=== PATIENT | female | born 1970 | race Caucasian/White ===

== ENCOUNTER 2018-08-15 15:55 | Emergency (ER) | payer OTHER ==
[~2018-08-15] VITALS: Ht 157.5 cm; Wt 56.2 kg
--- OUTSIDE RECORDS SUMMARY | 2018-08-15 15:57 | XMS REPORT | Clinical Summary ---
Author Author [facility] Address Unknown Phone Unavailable Care Team Providers Care Medical Superintendent Name Role Phone Taina Ball MD PCP Allergies Comments Active Allergy Reactions Severity Noted Date Pt states, "it makes my mind go crazy." "My throat closes up" Fentanyl Anaphylaxis, High 11/15/2015 Other (See Comments) RASH, ITCHING Iohexol Shortness Of High 04/16/2016 Breath Penicillins Hives High 11/15/2015 Sulfa (Sulfonamide Hives High 11/15/2015 Antibiotics) Medications End Date Status Medication Sig Dispensed Refills Start Date Active riFAXimin (XIFAXAN) 550 Take 550 mg 0 mg tablet by mouth 2 (two) times a day. Active MILK THISTLE ORAL Take 3 0 capsules by mouth nightly. Active LEXAPRO 10 mg tablet Take 20 mg by 0 mouth daily. 6 Active ondansetron ODT Take 8 mg by 0 (ZOFRAN-ODT) 8 MG mouth every 8 disintegrating tablet (eight) hours as needed for nausea or vomiting. Active XANAX 0.5 mg tablet Take 0.5 mg 0 by mouth daily as needed for anxiety. Active DROSPIR/ETH Take 1 tablet 0 ESTRA/LEVOMEFOL CA by mouth (SAFYRAL ORAL) daily. Active Lactobacillus acidophilus Take by mouth 0 10 billion cell capsule daily. 50 billion (5 tablets) Active pantoprazole (PROTONIX) Take 40 mg by 0 40 MG EC tablet mouth daily. Active spironolactone Take 50 mg by 0 (ALDACTONE) 50 MG tablet mouth 2 (two) times a day. Active lactulose 10 gram/15 mL Take 30 g by 0 (15 mL) solution mouth 2 (two) times a day. Active cholecalciferol, vitamin Take 50,000 0 D3, (VITAMIN D3) 5,000 Units by unit capsule mouth once a week. Active furosemide (LASIX) 20 mg Take 20 mg by 0 tablet mouth daily. Active atomoxetine (STRATTERA) Take 100 mg 0 100 MG capsule by mouth daily. Active buPROPion (WELLBUTRIN) Take 100 mg 0 100 MG tablet by mouth daily. Active QUEtiapine (SEROquel) 25 Take 25 mg by 0 MG tablet mouth nightly as needed. Active traZODone (DESYREL) 100 Take 200 mg 0 MG tablet by mouth nightly as needed for sleep. 09/14/2017 Discontinued zolpidem (AMBIEN) 5 MG Take 10 mg by 0 tablet mouth daily. 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 Mixed anxiety and depressive disorder 06/06/2018 Cirrhosis of liver with ascites 07/07/2017 Overview: Added automatically from request for surgery [id number] Fatty liver 04/10/2016 Cirrhosis of liver 04/10/2016 Hepatomegaly 04/10/2016 Epigastric pain 12/05/2015 Intractable vomiting with nausea 12/05/2015 Encounters Care Team Description Date Type Specialty Valentin Lopez MD Mild cognitive impairment (Primary Dx); Fatty liver; Hepatomegaly; Cirrhosis of liver with ascites, unspecified hepatic cirrhosis type (HCC); Myotonia congenita; Blood glucose abnormal; Anemia due to vitamin B12 deficiency, unspecified B12 deficiency type; Adult hypothyroidism 06/09/2018 Orders Only Neurology Valentin Lopez MD 06/09/2018 Orders Only Neurology Jailene English Mild cognitive impairment (Primary Dx); Cerebral atherosclerosis; Cirrhosis of liver with ascites, unspecified hepatic cirrhosis type (HCC) 06/07/2018 Orders Only Neurology Valentin Lopez MD Mild cognitive impairment (Primary Dx); Myotonia congenita; Mixed anxiety and depressive disorder 06/06/2018 Office Visit Neurology William Renee MD Hepatic cirrhosis, unspecified hepatic cirrhosis type, unspecified whether ascites present (HCC) 06/02/2018 Hospital Radiology Encounter William Renee MD 05/30/2018 Transcribe Access Orders William Renee MD Hepatic cirrhosis, unspecified hepatic cirrhosis type, unspecified whether ascites present (HCC) (Primary Dx) 05/27/2018 Transcribe Access Orders William Renee MD Nausea and vomiting, intractability of vomiting not specified, unspecified vomiting type 11/08/2017 Hospital Radiology Encounter William Renee MD Nausea and vomiting, intractability of vomiting not specified, unspecified vomiting type (Primary Dx) 10/21/2017 Transcribe Access Orders Dameon Ramirez MD 10/21/2017 Transcribe Access Orders Ben Rivas MD 09/14/2017 Anesthesia Gastroenterology Event William Renee MD EGD/biopsies 09/14/2017 Surgery Gastroenterology William Rneee MD Cirrhosis of liver with ascites, unspecified hepatic cirrhosis type (Primary Dx) 09/14/2017 Hospital Gastroenterology Encounter after 08/14/2017 Social History Date Tobacco Use Types Packs/Day Years Used Never Smoker Smokeless Tobacco: Never Used Alcohol Use Drinks/Week oz/Week Comments Defer Sex Assigned at Date Recorded Not on file Industry Job Start Date Occupation Not on file Not on file Not on file Travel End Travel History Travel Start No recent travel history available. Last Filed Vital Signs Time Taken Vital Sign Reading 06/06/2018 12:44 PM [facility] Blood Pressure 131/71 06/06/2018 12:44 PM [facility] Pulse 83 09/14/2017 1:30 PM CDT Temperature 36.4 C (97.5 F) 09/14/2017 3:00 PM CDT Respiratory Rate 19 09/14/2017 3:00 PM CDT Oxygen Saturation 98% - Inhaled Oxygen - Concentration 06/06/2018 12:44 PM [facility] Weight 66.7 kg (147 lb) 06/06/2018 12:44 PM [facility] Height 157.5 cm (5' 2") 06/06/2018 12:44 PM [facility] Body Mass Index 26.89 Plan of Treatment Care Team Description Date Type Specialty Svitlana Perez MD [address] [facility] [address] [place] [address] 08/18/2018 Office Visit Obstetrics and Gynecology Valentin Lopez MD [address] [facility] [address] [place] [address] Edna Medrano, PhD [address] [facility] [address] [place] [address] [phone] 08/22/2018 Office Visit Neuropsychology Valentin Lopez MD [address] [facility] [address] [place] [address] [phone] 08/22/2018 Appointment Radiology Valentin Lopez MD [address] [facility] [address] [place] [address] [phone] 08/30/2018 Office Visit Neurology Health Maintenance Due Date Last Done Comments CERVICAL CANCER SCREENING 02/26/1992 INFLUENZA VACCINE 12/08/2018 Procedures Comments Procedure Name Priority Date/Time Associated Diagnosis JENNIFER Routine 06/16/2018 MCI (mild cognitive 2:11 PM [facility] impairment) with memory loss Fatty metamorphosis of liver Cirrhosis of liver without ascites, unspecified hepatic cirrhosis type (HCC) Other ascites Congenital myotonia Myxedema heart disease T3 Routine 06/16/2018 MCI (mild cognitive 2:11 PM [facility] impairment) with memory loss Fatty metamorphosis of liver Cirrhosis of liver without ascites, unspecified hepatic cirrhosis type (HCC) Other ascites Congenital myotonia Myxedema heart disease T4, FREE Routine 06/16/2018 MCI (mild cognitive 2:11 PM [facility] impairment) with memory loss Fatty metamorphosis of liver Cirrhosis of liver without ascites, unspecified hepatic cirrhosis type (HCC) Other ascites Congenital myotonia Myxedema heart disease THYROID STIMULATING Routine 06/16/2018 MCI (mild cognitive HORMONE 2:11 PM [facility] impairment) with memory loss Fatty metamorphosis of liver Cirrhosis of liver without ascites, unspecified hepatic cirrhosis type (HCC) Other ascites Congenital myotonia Myxedema heart disease C-REACTIVE PROTEIN Routine 06/16/2018 MCI (mild cognitive 2:11 PM [facility] impairment) with memory loss Fatty metamorphosis of liver Cirrhosis of liver without ascites, unspecified hepatic cirrhosis type (HCC) Other ascites Congenital myotonia Myxedema heart disease SEDIMENTATION RATE Routine 06/16/2018 MCI (mild cognitive 2:11 PM [facility] impairment) with memory loss Fatty metamorphosis of liver Cirrhosis of liver without ascites, unspecified hepatic cirrhosis type (HCC) Other ascites Congenital myotonia Myxedema heart disease RHEUMATOID FACTOR Routine 06/16/2018 MCI (mild cognitive 2:11 PM [facility] impairment) with memory loss Fatty metamorphosis of liver Cirrhosis of liver without ascites, unspecified hepatic cirrhosis type (HCC) Other ascites Congenital myotonia Myxedema heart disease HOMOCYSTINE, PLASMA Routine 06/16/2018 MCI (mild cognitive 2:11 PM [facility] impairment) with memory loss Fatty metamorphosis of liver Cirrhosis of liver without ascites, unspecified hepatic cirrhosis type (HCC) Other ascites Congenital myotonia Myxedema heart disease VITAMIN B12 LEVEL Routine 06/16/2018 MCI (mild cognitive 2:11 PM [facility] impairment) with memory loss Fatty metamorphosis of liver Cirrhosis of liver without ascites, unspecified hepatic cirrhosis type (HCC) Other ascites Congenital myotonia Myxedema heart disease US ABDOMEN COMPLETE Routine 06/02/2018 Hepatic cirrhosis, 10:30 AM [facility] unspecified hepatic cirrhosis type, unspecified whether ascites present (HCC) NM GASTRIC EMPTYING Routine 11/08/2017 Nausea and vomiting, 10:55 AM CDT intractability of vomiting not specified, unspecified vomiting type SURGICAL PATHOLOGY Routine 09/14/2017 REQUEST 3:47 PM CDT ESOPHAGOGASTRODUODENOSCOP 09/14/2017 Cirrhosis Y (EGD) 1:06 PM CDT Esophageal varices in cirrhosis after 08/14/2017 Results * Homocystine, plasma (06/16/2018 2:11 PM [facility]) Homocysteine 6.2 0.0 - 15.0 umol/L [facility] Comment: [facility] The risk for coronary vascular disease increases progressively with homocysteine concentration.A 3.4 times greater risk is associated with a homocysteine concentration of greater than 15.8 umol/L as compared to a concentration below 14.1 umol/L. Specimen Plasma specimen Performing Organization Address City/State/Zipcode Phone Number [facility] DEPARTMENT OF [address] [place] [address] PATHOLOGY AND GENOMIC MEDICINE [address] * Sedimentation rate (06/16/2018 2:11 PM C[facility] MEDICAL DIRECTOR) Sedimentation rate 14 0 - 20 mm/hr [facility] Specimen Blood Performing Organization Address City/State/Zipcode Phone Number [facility] DEPARTMENT [id number] [place] [address] [place] [address] PATHOLOGY AND GENOMIC MEDICINE [address] * Rheumatoid factor (06/16/2018 2:11 PM C[facility] DIRECT[facility]) Rheumatoid factor <10 0 - 13 IU/mL [facility] [place] Specimen Plasma specimen Performing Organization Address City/[facility] Phone Number [facility] [place] [address] PATHOLOGY AND GENOMIC MEDICINE [address] * C-reactive protein (06/16/2018 2:11 PM [facility]) CRP <0.30 0.00 - 0.50 mg/dL [facility] [place] Specimen Plasma specimen Performing Organization Address City/[facility] Phone Number [facility] [place] [address] PATHOLOGY AND GENOMIC MEDICINE [address] * JENNIFER (06/16/2018 2:11 PM [facility] DIRECT[facility]) JENNIFER screen Negative Negative [facility] [place] Specimen Blood Performing Organization Address [facility] Phone Number [facility] [place] [address] PATHOLOGY AND GENOMIC MEDICINE [address] * T3 (06/16/2018 2:11 PM [facility]) T3 129 80 - 200 ng/dL [facility] [place] [place] Specimen Plasma specimen Performing Organization Address [facility]/Zipcode Phone Number [facility] [place] [address] PATHOLOGY AND GENOMIC MEDICINE [address] * Thyroid stimulating hormone (06/16/2018 2:11 PM [facility]) TSH 2.09 0.27 - 4.20 uIU/mL [facility] Specimen Plasma specimen Performing Organization Address City/[facility]/Zipcode Phone Number [facility] DEPARTMENT OF [address] [place] [address] [place] [address] PATHOLOGY AND GENOMIC MEDICINE [address] * T4, free (06/16/2018 2:11 PM C[facility] MED[facility] DIRECTOR) T4, free 1.04 0.90 - 1.70 ng/dL [facility] Specimen Plasma specimen Performing Organization Address [facility] Phone Number [facility] DEPARTMENT OF [address] [place] [address] [place] [address] PATHOLOGY AND GENOMIC MEDICINE [address] * Vitamin B12 level (06/16/2018 2:11 PM C[facility] MED[facility]) Vitamin B12 849 211 - 946 pg/mL [facility] Comment: [facility] Significant overlap exists between normal and deficiency states. However, most patients with deficiencies will have Serum B12 <200 pg/mL. Specimen Serum Performing Organization Address [facility] Phone Number [facility] DEPARTMENT OF [address] [place] [address] [place] [address] PATHOLOGY AND GENOMIC MEDICINE [address] * US Abdomen Complete (06/02/2018 10:30 AM C[facility] MEDICAL DIRECTOR) Narrative Performed At EXAM: US ABDOMEN COMPLETE RADIBANNER CLINICAL DATA:K74.60 Unspecified cirrhosis of liver, CIRRHOSIS K74.60 COMPARISON: CT April 16, 2016 TECHNIQUE: Sonographic evaluation of the abdomen including grayscale/B mode, color and spectral Doppler technique. FINDINGS: Liver:The liver is diffusely heterogeneous in echogenicity and has a nodular contour consistent with cirrhosis. MPV:Doppler evaluation of the portal vein demonstrates normal hepatopedal flow.The main portal vein measures 11 mm. Gallbladder:The gallbladder has been surgically removed. CBD: The common bile duct measures 6 mm , within normal limits. Pancreas:The visualized portions of the pancreas are within normal limits. Spleen:The spleen is homogeneous and not enlarged measuring 12.7 cm. Right Kidney:The right kidney is normal in size and echogenicity. There is no evidence of mass, calculi, or hydronephrosis.The right kidney measures 12.3 cm. Left Kidney:The left kidney is normal in size and echogenicity. There is no evidence of mass, calculi, or hydronephrosis. The left kidney measures 11.4 cm. Aorta:The visualized upper abdominal aorta demonstrates no evidence of ectasia or aneurysm. IVC:The visualized portions of the inferior vena cava are unremarkable. Ascites: No abnormal abdominal fluid collections are visualized. There is no evidence of ascites. Pleural Effusion:There are no pleural effusions. IMPRESSION: Cirrhosis again noted. No suspicious sonographic abnormality in the abdomen. I personally reviewed the images and the resident's findings and agree with the final report. [id number] Procedure Note Hm Interface, Radiology Results Incoming - 06/02/2018 4:12 PM CENTER MEDICAL DIRECTOR EXAM: US ABDOMEN COMPLETE CLINICAL DATA: K74.60 Unspecified cirrhosis of liver, CIRRHOSIS K74.60 COMPARISON: CT April 16, 2016 TECHNIQUE: Sonographic evaluation of the abdomen including grayscale/B mode, color and spectral Doppler technique. FINDINGS: Liver: The liver is diffusely heterogeneous in echogenicity and has a nodular contour consistent with cirrhosis. MPV: Doppler evaluation of the portal vein demonstrates normal hepatopedal flow. The main portal vein measures 11 mm. Gallbladder: The gallbladder has been surgically removed. CBD: The common bile duct measures 6 mm , within normal limits. Pancreas: The visualized portions of the pancreas are within normal limits. Spleen: The spleen is homogeneous and not enlarged measuring 12.7 cm. Right Kidney: The right kidney is normal in size and echogenicity. There is no evidence of mass, calculi, or hydronephrosis. The right kidney measures 12.3 cm. Left Kidney: The left kidney is normal in size and echogenicity. There is no evidence of mass, calculi, or hydronephrosis. The left kidney measures 11.4 cm. Aorta: The visualized upper abdominal aorta demonstrates no evidence of ectasia or aneurysm. IVC: The visualized portions of the inferior vena cava are unremarkable. Ascites: No abnormal abdominal fluid collections are visualized. There is no evidence of ascites. Pleural Effusion: There are no pleural effusions. IMPRESSION: Cirrhosis again noted. No suspicious sonographic abnormality in the abdomen. I personally reviewed the images and the resident's findings and agree with the final report. [id number] Performing Organization Address City/State/Zipcode Phone Number [facility] [address] [place] [address] * NM Gastric Emptying (11/08/2017 10:55 AM CDT) Narrative Performed At PROCEDURE:NM GASTRIC EMPTYING RADIANT INDICATION:Nausea and vomiting. TECHNIQUE: 0.5 mCi of Tc-99m sulfur colloid was mixed with an egg and cooked.The egg was fed to the patient and dynamic planar images of the abdomen were acquired for 90 minutes. FINDINGS:The gastric emptying rate is delayed.The 90 minute half-time of emptying is 527 minutes.Normal range is between 45 and 100 minutes. IMPRESSION: 1.Markedly delayed gastric emptying rate. [facility]-[id number] Procedure Note Interface, Radiology Results Incoming - 11/08/2017 11:11 AM CDT PROCEDURE: NM GASTRIC EMPTYING INDICATION: Nausea and vomiting. TECHNIQUE: 0.5 mCi of Tc-99m sulfur colloid was mixed with an egg and cooked. The egg was fed to the patient and dynamic planar images of the abdomen were acquired for 90 minutes. FINDINGS: The gastric emptying rate is delayed. The 90 minute half-time of emptying is 527 minutes. Normal range is between 45 and 100 minutes. IMPRESSION: 1. Markedly delayed gastric emptying rate. [facility]-[id number] Performing Organization Address City/[facility] Phone Number [facility] [address] [place] [address] * Surgical pathology request (09/14/2017 3:47 PM CDT) [facility] DEPARTMENT OF PATHOLOGY AND GENOMIC MEDICINE Surgical pathology report See link below for PDF Lab [facility] DEPARTMENT OF Report PATHOLOGY AND GENOMIC MEDICINE Result status This is Final Report to [facility] DEPARTMENT OF [id number] PATHOLOGY AND GENOMIC MEDICINE Performing Organization Address City/State/[facility] Phone Number [facility] DEPARTMENT OF [address] [place] [address] PATHOLOGY AND GENOMIC MEDICINE after 08/14/2017 Insurance Payer Benefit Subscriber ID Type Phone Address Plan / Group [employer] [facility] xxxxxxxxxxxx Exchange EXCHANGE [employer]ANGE [employer] Advance Directives Patient has advance care planning documents on file. For more information, nate hawthorne contact: Anurag Merino [address] [place] [address]
[2018-08-15] MEDS ORDERED: ASPIRIN 81 MG CHEW TAB PO ONE (16:15)
[2018-08-15 16:22] LABS: BASOPHILS % 0.2 % (0.0-1.0); EOSINOPHILS # (AUTO) 0.1 (0.0-0.4); HEMATOCRIT 45.2 % (34.2-44.1); HEMOGLOBIN 15.4 g/dL (12.0-16.0); LYMPHOCYTES # (AUTO) 2.9 (1.0-3.2); LYMPHOCYTES % 35.7 % (18.0-39.1); MEAN CORPUSCULAR HEMOGLOBIN 27.7 pg (28-32); MEAN CORPUSCULAR HGB CONC 34.1 g/dL (31-35); MEAN CORPUSCULAR VOLUME 81.3 fL (81-99); MONOCYTES # (AUTO) 0.5 (0.2-0.8); MONOCYTES % 6.1 % (4.4-11.3); NEUTROPHILS # (AUTO) 4.7 (2.1-6.9); NEUTROPHILS % 56.6 % (38.7-80.0); PLATELET COUNT 148 x10e3/uL (140-360); RED BLOOD COUNT 5.56 x10e6/uL (3.6-5.1); RED CELL DISTRIBUTION WIDTH 12.1 % (11.7-14.4)
[2018-08-15 16:32] LABS: INR 0.92; PROTHROMBIN TIME 12.8 seconds (11.9-14.5)
[2018-08-15 16:33] LABS: PARTIAL THROMBOPLASTIN TIME 29.9 seconds (23.8-35.5)
[2018-08-15 16:33] LABS: BILIRUBIN,URINE NEGATIVE (NEGATIVE); CLARITY,URINE SL CLOUDY (CLEAR); COLOR,URINE YELLOW (YELLOW); KETONES,URINE NEGATIVE (NEGATIVE); LEUKOCYTE ESTERASE ,URINE 1+ (NEGATIVE); NITRITE,URINE NEGATIVE (NEGATIVE); PREGNANCY TEST, URINE NEGATIVE (NEGATIVE); PROTEIN,URINE DIPSTICK NEGATIVE (NEGATIVE); URINE UROBILINOGEN 0.2 mg/dL (0.2 - 1)
[2018-08-15 16:42] LABS: ALANINE AMINOTRANSFERASE 51 IU/L (0-55); ALKALINE PHOSPHATASE 133 IU/L (40-150); ANION GAP 13.1 mmol/L (8-16); BLOOD UREA NITROGEN 11 mg/dL (7-26); BUN/CREATININE RATIO 12 (6-25); CALCIUM 9.9 mg/dL (8.4-10.2); CARBON DIOXIDE 28 mmol/L (22-29); CHLORIDE 100 mmol/L (98-107); CREATINE KINASE 54 IU/L (29-168); CREATININE, SERUM 0.95 mg/dL (0.57-1.11); EST GLOMERULAR FILTRATION RATE > 60 ML/MIN (60-); GLUCOSE 127 mg/dL (74-118); POTASSIUM 4.1 mmol/L (3.5-5.1); SODIUM 137 mmol/L (136-145)
[2018-08-15 16:47] LABS: BACTERIA,URINE MODERATE /HPF; EPITHELIAL CELLS,URINE MANY /LPF
[2018-08-15] MEDS ORDERED: ASPIRIN 81 MG CHEW TAB ONE (18:36)
[2018-08-15] MEDS ORDERED: DOXYCYCLINE HYCLATE TABLET 100 MG TAB PO ONE (18:45)
--- NOTE | 2018-08-15 19:24 | Diagnostic Imaging Report ---
Examination: Single AP view of the chest. COMPARISON: None. INDICATION: Chest pain DISCUSSION: Lines/tubes: None. Lungs: The lungs are well inflated and clear. No pneumonia or pulmonary edema. Pleura: No pleural effusion or pneumothorax. Heart and mediastinum: The heart and the mediastinum are unremarkable. Bones and soft tissues: No acute bony abnormalities. IMPRESSION: 1. No acute cardiopulmonary abnormalities. Signed by: Dr. James Avila M.D. on 08/15/2018 7:20 PM
--- NOTE | 2018-08-15 21:01 | NUR ---
LUIS MIGUEL CLEMENTE IN TRIAGE FOR VS. PT HAS DECIDED TO FOLLOWUP WITH TRANSPLANT TEAM TOMORROW.
== END 2018-08-15 21:09 | disposition home or self-care (01) ==
LOC: ER 15:55
DX: R07.89 Other chest pain (principal); R06.00 Dyspnea, unspecified; K72.90 Hepatic failure, unspecified without coma; Z76.82 Awaiting organ transplant status
CPT/HCPCS: 36415; 71045; 80053; 81001; 81025; 82550; 82553; 84484; 85025; 85610; 85730; 93005; 99283